=== PATIENT | male | born 1990 | race Caucasian/White ===

== ENCOUNTER 2017-08-04 08:10 | Day surgery (SDC) | payer MEDICAID ==
[~2017-08-04] VITALS: Ht 180.3 cm; Wt 130.5 kg
[~2017-08-04 08:10] MED LIST: ESOM20CA31 PO; SODIUM CHLORIDE 0.9% 1,000 ML IV ONE
[2017-08-04] MEDS ORDERED: PROPOFOL 1% 20 ML VIAL IVP ONE (08:11)
== END 2017-08-04 11:15 | disposition home or self-care (01) ==
LOC: SURGERY 08:10
PROVIDERS: ATTEND Internal Medicine Gastroenterology
DX: K29.70 Gastritis, unspecified, without bleeding (principal); E66.01 Morbid (severe) obesity due to excess calories; I10 Essential (primary) hypertension; F10.21 Alcohol dependence, in remission; Z88.6 Allergy status to analgesic agent; Z79.899 Other long term (current) drug therapy; Z68.41 Body mass index [BMI] 40.0-44.9, adult
CPT/HCPCS: 43239; 88305; 88312; J2704; J7030